=== PATIENT | male | born 1980 | race Hispanic/Latino ===

== ENCOUNTER 2021-02-09 15:14 | Inpatient (IN) | payer SELFPAY ==
[~2021-02-09] VITALS: Ht 180.3 cm; Wt 118.3 kg
[~2021-02-09 15:14] MED LIST: AUD IH; FLUT110HFA IH; LEVO500T2 PO; PRED50TA2 PO
[2021-02-09 15:50] LABS: BASOPHILS % (AUTO) 0.2 % (0.0-5.0); EOSINOPHILS % (AUTO) 0.6 % (0.0-8.0); MEAN CORPUSCULAR HGB CONC 27.3 g/dL (32.0-36.0); MEAN CORPUSCULAR VOLUME 69.4 fL (79-99); MONOCYTES % (AUTO) 7.7 % (3.0-13.0); NEUTROPHILS % (AUTO) 83.6 % (40.0-77.0); NUCLEATED RED BLOOD CELLS 0.9 % (0.0-0.19); PLATELET COUNT (AUTO) 103 K/uL (130-400); RED BLOOD CELL COUNT(AUTO) 2.16 MIL/uL (4.50-6.20)
[2021-02-09 16:04] LABS: CREATININE 0.9 mg/dL (0.5-1.5); POTASSIUM 3.5 mmol/L (3.5-5.1)
[2021-02-09 16:05] LABS: INR 1.65 (0.85-1.15); PROTHROMBIN TIME 17.2 SEC (9.6-11.6)
[2021-02-09 16:06] LABS: PARTIAL THROMBOPLASTIN TIME 22.8 SEC (26.3-35.5)
[2021-02-09 16:08] LABS: TOTAL PROTEIN, SERUM 8.8 g/dL (6.0-8.3)
[2021-02-09 16:09] LABS: BASOPHILS % (AUTO) 0.3 % (0.0-5.0); EOSINOPHILS % (AUTO) 0.6 % (0.0-8.0); LYMPHOCYTES % (AUTO) 7.6 % (21.0-51.0); MEAN CORPUSCULAR HEMOGLOBIN 18.9 pg (27.0-33.0); MONOCYTES % (AUTO) 7.8 % (3.0-13.0); NEUTROPHILS % (AUTO) 82.9 % (40.0-77.0); NUCLEATED RED BLOOD CELLS 0.6 % (0.0-0.19); PLATELET COUNT (AUTO) 104 K/uL (130-400); RED BLOOD CELL COUNT(AUTO) 2.17 MIL/uL (4.50-6.20); WHITE BLOOD COUNT (AUTO) 9.5 K/uL (4.8-10.8)
[2021-02-09 16:12] LABS: HEMATOCRIT 15.2 % (42-54)
[2021-02-09] MEDS ORDERED: 0.9%NACL 1000ML 1,000 ML IV ONE (16:30)
[2021-02-09] MEDS ORDERED: IPRATROPIUM/ALBUTEROL SULFATE 3 ML SOLUTION IH PRN (21:00)
[2021-02-09] MEDS ORDERED: ONDANSETRON 4MG INJ IV PRN (21:00)
[2021-02-09] MEDS ORDERED: ACETAMINOPHEN 325 MG TAB PO PRN ×2 (21:00)
[2021-02-09] MEDS ORDERED: MAG/ALUM/SIMETH 30 ML UDCUP PO PRN (21:00)
[2021-02-09] MEDS ORDERED: IOHEXOL-350 50ML VIAL IV ONE (22:21)
[2021-02-09 22:33] LABS: HEMATOCRIT 15.7 % (42-54)
[2021-02-09] MEDS: FAMOTIDINE 20MG VIAL IV SCH (22:48)
[2021-02-09] MEDS: LACTATED RINGERS 1000ML 1,000 ML IV SCH (22:49)
[2021-02-09 23:25] LABS: AMPHET/METH SCREEN,URINE NEGATIVE (NEGATIVE); BARBITURATE SCREEN, URINE NEGATIVE (NEGATIVE); BENZODIAZEPINES SCREEN,URINE NEGATIVE (NEGATIVE); CANNABINOID SCREEN,URINE NEGATIVE (NEGATIVE); COCAINE SCREEN,URINE NEGATIVE (NEGATIVE); OPIATE SCREEN,URINE NEGATIVE (NEGATIVE); PHENCYCLIDINE SCREEN,URINE NEGATIVE (NEGATIVE)
[2021-02-09 23:35] VITALS: BP 139/76
[2021-02-10] VITALS (8 sets, daily range): BP systolic 106–137; BP diastolic 48–75
[2021-02-10] MEDS ORDERED: ASPI-1026 PO (00:10)
[2021-02-10] MEDS ORDERED: 0.9% NACL 250ML 250 ML ONE (00:50)
[2021-02-10 05:45] LABS: MEAN CORPUSCULAR HEMOGLOBIN 20.5 pg (27.0-33.0); MEAN CORPUSCULAR HGB CONC 28.4 g/dL (32.0-36.0); NUCLEATED RED BLOOD CELLS 0.7 % (0.0-0.19); RED BLOOD CELL COUNT(AUTO) 2.54 MIL/uL (4.50-6.20); RED CELL DISTRIBUTION WIDTH 20.8 % (11.0-15.5); WHITE BLOOD COUNT (AUTO) 8.3 K/uL (4.8-10.8)
[2021-02-10 05:50] LABS: HEMATOCRIT 18.3 % (42-54)
[2021-02-10] MEDS ORDERED: FUROSEMIDE 20MG VIAL IV SCH (06:30)
[2021-02-10] MEDS: FAMOTIDINE 20MG VIAL IV SCH ×2 (09:53→20:19)
[2021-02-10] MEDS ORDERED: CALCIUM GLUC 1GM 1 GM in 0.9%NACL 100ML 100 ML IV SCH (12:00)
[2021-02-10] MEDS: HYDRALAZINE 20MG/ML VIAL IV PRN (16:53)
[2021-02-11] MEDS ORDERED: SOLU-MEDROL 40MG VIAL IVP ONE (03:30)
[2021-02-11] MEDS ORDERED: DiphenhydrAMINE HCL 50 MG/ML VIAL IV ONE (03:30)
[2021-02-11 03:32] LABS: BASOPHILS % (AUTO) 0.6 % (0.0-5.0); EOSINOPHILS % (AUTO) 2.5 % (0.0-8.0); LYMPHOCYTES % (AUTO) 19.9 % (21.0-51.0); MEAN CORPUSCULAR HEMOGLOBIN 22.4 pg (27.0-33.0); MEAN CORPUSCULAR VOLUME 74.6 fL (79-99); MONOCYTES % (AUTO) 7.3 % (3.0-13.0); NEUTROPHILS % (AUTO) 68.4 % (40.0-77.0); NUCLEATED RED BLOOD CELLS 0.5 % (0.0-0.19); PLATELET COUNT (AUTO) 134 K/uL (130-400); RED BLOOD CELL COUNT(AUTO) 3.35 MIL/uL (4.50-6.20); RED CELL DISTRIBUTION WIDTH 21.2 % (11.0-15.5); WHITE BLOOD COUNT (AUTO) 10.4 K/uL (4.8-10.8)
[2021-02-11 03:35] LABS: APPEARANCE,URINE CLEAR (CLEAR); BILIRUBIN,URINE SMALL (NEGATIVE); COLOR,URINE YELLOW (YELLOW); GLUCOSE, URINE (UA) NEGATIVE (NEGATIVE); KETONES,URINE NEGATIVE (NEGATIVE); LEUKOCYTE ESTERASE ,URINE NEGATIVE (NEGATIVE); NITRATE,URINE NEGATIVE (NEGATIVE); OCCULT BLOOD,URINE NEGATIVE (NEGATIVE); PROTEIN,URINE NEGATIVE (NEGATIVE)
[2021-02-11 03:42] VITALS: BP 136/74
[2021-02-11 03:43] LABS: BACTERIA,URINE None Seen /HPF (None Seen); RBC,URINE None Seen /HPF (0-1); SQUAMOUS EPITHELIAL CELL,UR Rare /HPF (0-2); WBC,URINE 0-1 /HPF (0-1)
[2021-02-11] MEDS: HYDRALAZINE 20MG/ML VIAL IV PRN (03:45)
[2021-02-11 03:58] LABS: ALBUMIN 3.3 g/dL (3.5-5.0); BILIRUBIN,TOTAL 1.5 mg/dL (0.2-1.0); CREATININE 0.8 mg/dL (0.5-1.5); POTASSIUM 3.4 mmol/L (3.5-5.1); TOTAL PROTEIN, SERUM 9.5 g/dL (6.0-8.3)
[2021-02-11] MEDS: LACTATED RINGERS 1000ML 1,000 ML IV SCH (05:53)
[2021-02-11 08:00] VITALS: BP 121/72
[2021-02-11] MEDS ORDERED: FOLIC ACID 1 MG TABLET PO SCH (09:00)
[2021-02-11] MEDS ORDERED: CYANOCOBALAMIN (VITAMIN B-12) 1,000 MCG TABLET PO SCH (09:00)
[2021-02-11] MEDS ORDERED: VIT1TABL69 PO (13:51)
== END 2021-02-11 11:30 | disposition home or self-care (01) | DRG 151 ==
LOC: EDH 15:14 → EDHIP 15:15 → 3DH 22:37
PROVIDERS: ADMIT Hospitalist; ATTEND Hospitalist
PROC: 30233N1 Transfusion of Nonautologous Red Blood Cells into Peripheral Vein, Percutaneous Approach (ICD-10-PCS; principal; 2021-02-09)
DX: R04.0 Epistaxis (principal); E87.1 Hypo-osmolality and hyponatremia; D50.0 Iron deficiency anemia secondary to blood loss (chronic); D69.6 Thrombocytopenia, unspecified; J45.909 Unspecified asthma, uncomplicated; R51.9 Headache, unspecified; Z20.822 Contact with and (suspected) exposure to COVID-19; Z79.82 Long term (current) use of aspirin; Z82.5 Family history of asthma and other chronic lower respiratory diseases; Z83.3 Family history of diabetes mellitus; Z80.3 Family history of malignant neoplasm of breast; Z82.0 Family history of epilepsy and other diseases of the nervous system; Z82.3 Family history of stroke; Z82.49 Family history of ischemic heart disease and other diseases of the circulatory system
CPT/HCPCS: 36415; 36430; 70460; 71045; 76705; 80053; 80305; 81001; 82270; 85014; 85018; 85025; 85027; 85220; 85230; 85240; 85280; 85610; 85730; 86078; 86850; 86900; 86901; 86923; 87635; C9803; G0378; J0360; J0610; J1200; J1940; J2920; J3490; J7050; J7120; P9016; Q9967

== ENCOUNTER 2021-09-23 01:12 | Inpatient (IN) | payer OTHER ==
[~2021-09-23] VITALS: Ht 180.3 cm; Wt 119.2 kg
[~2021-09-23 01:12] MED LIST changes: -AUD IH; -FLUT110HFA IH; -LEVO500T2 PO; -PRED50TA2 PO; +VIT1TABL69 PO
[2021-09-23 01:30] LABS: BASOPHILS % (AUTO) 0.5 % (0.0-5.0); EOSINOPHILS % (AUTO) 1.9 % (0.0-8.0); HEMATOCRIT 22.8 % (42-54); LYMPHOCYTES % (AUTO) 23.7 % (21.0-51.0); MEAN CORPUSCULAR HEMOGLOBIN 18.9 pg (27.0-33.0); MEAN CORPUSCULAR HGB CONC 27.6 g/dL (32.0-36.0); MEAN CORPUSCULAR VOLUME 68.3 fL (79-99); MONOCYTES % (AUTO) 7.8 % (3.0-13.0); NEUTROPHILS % (AUTO) 65.6 % (40.0-77.0); PLATELET COUNT (AUTO) 64 K/uL (130-400); RED BLOOD CELL COUNT(AUTO) 3.34 MIL/uL (4.50-6.20); RED CELL DISTRIBUTION WIDTH 21.4 % (11.0-15.5); WHITE BLOOD COUNT (AUTO) 6.4 K/uL (4.8-10.8)
[2021-09-23 01:47] LABS: CREATININE 0.8 mg/dL (0.5-1.5); POTASSIUM 3.2 mmol/L (3.5-5.1)
[2021-09-23 01:53] LABS: ALBUMIN 3.3 g/dL (3.5-5.0); BILIRUBIN,TOTAL 1.1 mg/dL (0.2-1.0); TOTAL PROTEIN, SERUM 9.7 g/dL (6.0-8.3)
[2021-09-23 02:07] LABS: PLATELET MORPHOLOGY COMMENT SLIGHTLY DECREASED
[2021-09-23 02:31] LABS: RETICULOCYTE % (AUTO) 1.87 % (0.42-2.23)
[2021-09-23 02:39] LABS: INR 1.4 (0.85-1.15)
[2021-09-23 02:40] LABS: PARTIAL THROMBOPLASTIN TIME 28.5 SEC (26.3-35.5)
[2021-09-23 02:58] LABS: MAGNESIUM 1.8 mg/dL (1.80-2.40)
[2021-09-23] MEDS ORDERED: POTASSIUM BICARB/CIT AC 25 MEQ TABLET.EFF PO ONE (03:00)
[2021-09-23 03:25] LABS: % IRON SATURATION 3.6 % (30-44)
[2021-09-23] MEDS ORDERED: NITROGLYCERIN 0.4 MG SL TAB SL PRN (04:00)
[2021-09-23] MEDS ORDERED: ACETAMINOPHEN 325 MG TAB PO PRN ×2 (04:00)
[2021-09-23] MEDS ORDERED: ONDANSETRON 4MG INJ IV PRN (04:00)
[2021-09-23] MEDS ORDERED: CHLORDIAZEPOXIDE HCL 25 MG CAP PO PRN ×2 (04:30)
[2021-09-23] MEDS ORDERED: LORAZEPAM 2 MG/ML 1 ML VIAL IVP PRN ×2 (04:30)
[2021-09-23] MEDS ORDERED: [UNRECOGNIZED DRUG - REMARK] MISC PRN (04:30)
[2021-09-23 04:58] LABS: AMPHET/METH SCREEN,URINE NEGATIVE (NEGATIVE); BARBITURATE SCREEN, URINE NEGATIVE (NEGATIVE); BENZODIAZEPINES SCREEN,URINE NEGATIVE (NEGATIVE); CANNABINOID SCREEN,URINE NEGATIVE (NEGATIVE); COCAINE SCREEN,URINE NEGATIVE (NEGATIVE); OPIATE SCREEN,URINE NEGATIVE (NEGATIVE); PHENCYCLIDINE SCREEN,URINE NEGATIVE (NEGATIVE)
[2021-09-23 05:00] VITALS: BP 138/77
[2021-09-23] MEDS: THIAMINE HCL 100 MG, FOLIC ACID 1 MG, M.V.I. IV [ADULT] 10 ML in 0.9%NACL 1000ML 1,000 ML IV SCH (06:00)
[2021-09-23 07:15] LABS: HEMATOCRIT 22.8 % (42-54)
[2021-09-23 08:00] VITALS: BP 119/68
[2021-09-23] MEDS: FAMOTIDINE 20MG TAB PO SCH ×2 (08:58→21:34)
[2021-09-23] MEDS ORDERED: POTASSIUM CHLORIDE 20MEQ/100ML 100 ML IV PRN (10:00)
[2021-09-23] MEDS ORDERED: LIDOCAINE HCL MPF 1% 5ML VIAL IV PRN (10:00)
[2021-09-23] MEDS ORDERED: POTASSIUM CHLORIDE 10% ELIXIR 20 MEQ/15 ML UDCUP PO PRN (10:00)
[2021-09-23 11:31] VITALS: BP 121/73
[2021-09-23] MEDS ORDERED: COMPOUND IV REFRIGERATED 1 EACH IVSOLN MISC PRN (13:30)
[2021-09-23 15:05] LABS: HEMATOCRIT 25.9 % (42-54)
[2021-09-23 16:10] VITALS: BP 122/75
[2021-09-23] MEDS: KCL 20 MEQ ERTAB PO PRN ×3 (17:42→22:33)
[2021-09-23 20:20] VITALS: BP 127/74
[2021-09-23 22:09] LABS: HEMATOCRIT 28.4 % (42-54)
[2021-09-23 23:54] VITALS: BP 125/76
[2021-09-24 03:37] VITALS: BP 123/69
[2021-09-24 05:26] LABS: BASOPHILS % (AUTO) 0.8 % (0.0-5.0); EOSINOPHILS % (AUTO) 2.3 % (0.0-8.0); HEMATOCRIT 23.2 % (42-54); LYMPHOCYTES % (AUTO) 17.7 % (21.0-51.0); MEAN CORPUSCULAR HEMOGLOBIN 20.4 pg (27.0-33.0); MEAN CORPUSCULAR HGB CONC 28.9 g/dL (32.0-36.0); MEAN CORPUSCULAR VOLUME 70.7 fL (79-99); NEUTROPHILS % (AUTO) 70.6 % (40.0-77.0); PLATELET COUNT (AUTO) 61 K/uL (130-400); RED BLOOD CELL COUNT(AUTO) 3.28 MIL/uL (4.50-6.20); RED CELL DISTRIBUTION WIDTH 21.5 % (11.0-15.5); WHITE BLOOD COUNT (AUTO) 6.5 K/uL (4.8-10.8)
[2021-09-24 06:00] LABS: BILIRUBIN,TOTAL 1.8 mg/dL (0.2-1.0); CREATININE 0.6 mg/dL (0.5-1.5); MAGNESIUM 1.9 mg/dL (1.80-2.40); PHOSPHORUS 3.4 mg/dL (2.5-4.9); POTASSIUM 3.9 mmol/L (3.5-5.1); TOTAL PROTEIN, SERUM 8.6 g/dL (6.0-8.3)
[2021-09-24] MEDS: THIAMINE HCL 100 MG, FOLIC ACID 1 MG, M.V.I. IV [ADULT] 10 ML in 0.9%NACL 1000ML 1,000 ML IV SCH (06:00)
[2021-09-24 08:00] VITALS: BP 107/69
[2021-09-24] MEDS: FAMOTIDINE 20MG TAB PO SCH (10:29)
[2021-09-24] MEDS ORDERED: COMPOUND IV MISC 1 EACH IVSOLN MISC PRN (11:30)
[2021-09-24] MEDS: PANTOPRAZOLE 40 MG/VIAL IVP SCH (11:30)
[2021-09-24] MEDS ORDERED: IRON SUCROSE COMPLEX 300 MG in 0.9%NACL 50ML 50 ML IV SCH (11:30)
[2021-09-24 12:00] VITALS: BP 122/76
[2021-09-24] MEDS: CYANOCOBALAMIN (VITAMIN B-12) 1,000 MCG TABLET PO SCH (15:05)
[2021-09-24] MEDS: FOLIC ACID 1 MG TABLET PO SCH (15:05)
[2021-09-24 15:33] VITALS: BP 110/72
[2021-09-24 20:45] VITALS: BP 122/82
[2021-09-25 00:05] VITALS: BP 126/76
[2021-09-25 03:45] VITALS: BP 113/77
[2021-09-25 05:43] LABS: BASOPHILS % (AUTO) 0.8 % (0.0-5.0); EOSINOPHILS % (AUTO) 2.6 % (0.0-8.0); HEMATOCRIT 28.9 % (42-54); LYMPHOCYTES % (AUTO) 21.5 % (21.0-51.0); MEAN CORPUSCULAR HEMOGLOBIN 20.1 pg (27.0-33.0); MEAN CORPUSCULAR VOLUME 71.9 fL (79-99); MONOCYTES % (AUTO) 9.4 % (3.0-13.0); NEUTROPHILS % (AUTO) 64.8 % (40.0-77.0); NUCLEATED RED BLOOD CELLS 0.3 % (0.0-0.19); PLATELET COUNT (AUTO) 97 K/uL (130-400); RED BLOOD CELL COUNT(AUTO) 4.02 MIL/uL (4.50-6.20); RED CELL DISTRIBUTION WIDTH 21.7 % (11.0-15.5); WHITE BLOOD COUNT (AUTO) 7.7 K/uL (4.8-10.8)
[2021-09-25 05:55] LABS: BILIRUBIN,TOTAL 1.2 mg/dL (0.2-1.0); CREATININE 0.7 mg/dL (0.5-1.5); POTASSIUM 3.7 mmol/L (3.5-5.1); TOTAL PROTEIN, SERUM 8.8 g/dL (6.0-8.3)
[2021-09-25] MEDS: THIAMINE HCL 100 MG, FOLIC ACID 1 MG, M.V.I. IV [ADULT] 10 ML in 0.9%NACL 1000ML 1,000 ML IV SCH (06:00)
[2021-09-25] MEDS ORDERED: PANT40TA54 PO (07:09)
[2021-09-25 08:00] VITALS: BP 121/65
[2021-09-25] MEDS ORDERED: IRON SUCROSE COMPLEX 300 MG in 0.9% NACL 250ML 250 ML IV SCH (09:00)
[2021-09-25] MEDS: FOLIC ACID 1 MG TABLET PO SCH (09:12)
[2021-09-25] MEDS: CYANOCOBALAMIN (VITAMIN B-12) 1,000 MCG TABLET PO SCH (09:12)
[2021-09-25] MEDS: PANTOPRAZOLE 40 MG/VIAL IVP SCH (09:12)
== END 2021-09-25 12:00 | disposition home or self-care (01) | DRG 812 ==
LOC: EDH 01:12 → EDHIP 01:13 → 3CH 05:00
PROVIDERS: ADMIT Hospitalist; ATTEND Hospitalist
PROC: 30233N1 Transfusion of Nonautologous Red Blood Cells into Peripheral Vein, Percutaneous Approach (ICD-10-PCS; principal; 2021-09-23)
DX: D62 Acute posthemorrhagic anemia (principal); D69.6 Thrombocytopenia, unspecified; E87.6 Hypokalemia; F10.129 Alcohol abuse with intoxication, unspecified; E66.9 Obesity, unspecified; J45.909 Unspecified asthma, uncomplicated; Z20.822 Contact with and (suspected) exposure to COVID-19; G89.29 Other chronic pain; Z68.36 Body mass index [BMI] 36.0-36.9, adult; Z81.8 Family history of other mental and behavioral disorders; Z82.49 Family history of ischemic heart disease and other diseases of the circulatory system; Z83.3 Family history of diabetes mellitus; Z82.3 Family history of stroke
CPT/HCPCS: 36415; 36430; 71045; 80053; 80305; 82270; 82550; 82607; 82728; 83735; 83874; 83883; 84100; 84484; 85014; 85018; 85025; 85610; 85730; 86334; 86850; 86900; 86901; 86923; 87635; 93005; C9113; G0378; J1756; J3411; J3490; J7030; J7050; P9016

== ENCOUNTER 2022-03-29 16:46 | Emergency (ER) | payer OTHER ==
[~2022-03-29] VITALS: Ht 175.3 cm; Wt 90.7 kg
[~2022-03-29 16:46] MED LIST changes: +PANT40TA54 PO
[2022-03-29 17:10] LABS: BASOPHILS % (AUTO) 0.6 % (0.0-5.0); EOSINOPHILS % (AUTO) 1.7 % (0.0-8.0); HEMATOCRIT 30.5 % (42-54); LYMPHOCYTES % (AUTO) 13.1 % (21.0-51.0); MEAN CORPUSCULAR HGB CONC 28.9 g/dL (32.0-36.0); MEAN CORPUSCULAR VOLUME 69.5 fL (79-99); NEUTROPHILS % (AUTO) 76.2 % (40.0-77.0); PLATELET COUNT (AUTO) 116 K/uL (130-400); RED BLOOD CELL COUNT(AUTO) 4.39 MIL/uL (4.50-6.20); RED CELL DISTRIBUTION WIDTH 21.5 % (11.0-15.5); WHITE BLOOD COUNT (AUTO) 9.3 K/uL (4.8-10.8)
[2022-03-29 17:17] LABS: CREATININE 0.7 mg/dL (0.5-1.5); POTASSIUM 3.3 mmol/L (3.5-5.1)
[2022-03-29 17:18] LABS: APPEARANCE,URINE CLEAR (CLEAR); BILIRUBIN,URINE NEGATIVE (NEGATIVE); COLOR,URINE LIGHT-YELLOW (YELLOW); GLUCOSE, URINE (UA) NEGATIVE (NEGATIVE); KETONES,URINE NEGATIVE (NEGATIVE); LEUKOCYTE ESTERASE ,URINE NEGATIVE Leu/uL (NEGATIVE); NITRATE,URINE NEGATIVE (NEGATIVE); OCCULT BLOOD,URINE NEGATIVE (NEGATIVE); PROTEIN,URINE NEGATIVE (NEGATIVE)
[2022-03-29 17:21] LABS: ALBUMIN 2.9 g/dL (3.5-5.0); TOTAL PROTEIN, SERUM 9.4 g/dL (6.0-8.3)
[2022-03-29 18:55] VITALS: BP 132/67
== END 2022-03-29 18:56 | disposition home or self-care (01) ==
LOC: EDH 16:46
DX: R07.89 Other chest pain (principal); J45.909 Unspecified asthma, uncomplicated
CPT/HCPCS: 36415; 71045; 80053; 81003; 84484; 85025; 93005

== ENCOUNTER 2023-01-18 20:54 | Emergency (ER) | payer OTHER ==
[~2023-01-18] VITALS: Ht 177.8 cm; Wt 86.2 kg
[2023-01-18 21:28] VITALS: BP 118/69; PULSE 78; RESP 18; O2SAT 99
[2023-01-18 21:28] LABS: SARS-CoV-2, RNA, NAAT NEGATIVE SARS CoV-2 (NEGATIVE)
[2023-01-18 21:34] LABS: INFLUENZA TYPE A Negative For Type A (NEGATIVE); INFLUENZA TYPE B Negative For Type B (NEGATIVE)
[2023-01-18 21:37] LABS: RAPID GROUP A STREP positive (NEGATIVE)
[2023-01-18] MEDS ORDERED: ALBU90AE2 IH (21:44)
[2023-01-18] MEDS ORDERED: AMOX1TAB16 PO (21:44)
== END 2023-01-18 21:55 | disposition home or self-care (01) ==
LOC: EDH 20:54
DX: J02.0 Streptococcal pharyngitis (principal); J45.909 Unspecified asthma, uncomplicated; F10.129 Alcohol abuse with intoxication, unspecified; Z20.822 Contact with and (suspected) exposure to COVID-19; Z79.899 Other long term (current) drug therapy; Z98.890 Other specified postprocedural states
CPT/HCPCS: 99283; 87635; 87880; 87804 ×2; C9803

== ENCOUNTER 2023-07-29 03:20 | Emergency (ER) | payer OTHER ==
[~2023-07-29 03:20] MED LIST changes: +ALBU90AE2 IH; +AMOX1TAB16 PO
[2023-07-29] MEDS: OXYMETAZOLINE HCL SPRAY 15 ML BOTTLE EN STA (05:02)
[2023-07-29 05:10] VITALS: BP 139/88; PULSE 88; RESP 16; O2SAT 99
[2023-07-29] MEDS ORDERED: FLUT16H NASAL (05:18)
== END 2023-07-29 05:38 | disposition home or self-care (01) ==
LOC: EDH 03:20
DX: R04.0 Epistaxis (principal); J45.909 Unspecified asthma, uncomplicated; Z79.899 Other long term (current) drug therapy
CPT/HCPCS: 93005